=== PATIENT | male | born 1995 | race American Indian/Alaskan Native ===

== ENCOUNTER 2017-11-29 21:47 | Emergency (ER) | payer SELFPAY ==
--- NOTE | 2017-11-30 02:01 | Emergency Department Report ---
HPI - General Chief Complaint: Allergic Reaction Time Seen by Provider: 11/30/17 01:56 - HPI HPI: Patient is a 22-year-old male with no prior medical history who presents to ED complaining rash and hives on his arms and legs. Patient states he first noticed this about 4 days ago. Patient can only recall drinking some different flavor of mics hard lemonade. He states this is very taken Benadryl and has been helping with the rash but he comes back sometimes. Patient denies any throat pain or swelling of the throat. He denies fevers/chills/nausea/vomiting/ chest pain/shortness of breath. ED Past Medical Hx - Past Medical History Previous Medical History?: No - Social History Smoking Status: Never Smoker - Medications Home Medications: Home Medications Medication Instructions Recorded Confirmed Last Taken Type Hydrocortisone/Aloe Vera 1 applic TP TID #1 tube 11/30/17 Unknown Rx [Cortizone-10 1% Creme] Hydroxyzine HCl 25 mg PO QHS #20 tablet 11/30/17 Unknown Rx ED Review of Systems ROS: Stated complaint: ALLERGIC REACTION Other details as noted in HPI Constitutional: denies: chills, fever Eyes: denies: eye pain, eye discharge, vision change ENT: denies: ear pain, throat pain Respiratory: denies: cough, shortness of breath, wheezing Cardiovascular: denies: chest pain, palpitations Endocrine: no symptoms reported Gastrointestinal: denies: abdominal pain, nausea, diarrhea Genitourinary: denies: urgency, dysuria Musculoskeletal: denies: back pain, joint swelling, arthralgia Skin: rash, pruritus. denies: lesions Neurological: denies: headache, weakness, paresthesias Psychiatric: denies: anxiety, depression Hematological/Lymphatic: denies: easy bleeding, easy bruising Physical Exam - Physical Exam Vital Signs: Vital Signs 11/29/17 23:28 Temperature 98.6 F Pulse Rate 97 H Respiratory 18 Rate Blood Pressure 171/102 O2 Sat by Pulse 98 Oximetry Physical Exam: GENERAL: Alert and oriented x3, no apparent distress, Normal Gait, atraumatic. HEAD: Head is normocephalic and a-traumatic. MOUTH:Mouth is well hydrated and without lesions. Tonsils nonerythematous or swollen, Uvula midline, Tongue not elevated. Mucous membranes are moist. Posterior pharynx clear, no exudate or lesions. Patent airways. LUNGS: Symetrical with respiration, No wheezing, no rales or crackles, CTAB. HEART: S1, S2 present, regular rate and rhythm without murmur, no rubs, no gallops. Non tender to palpation SKIN: Warm and dry, mild, erythematous, generalized, raised lesions seen on her anterior thighs. No lesions, No ulceration or induration present. ED Course Vital Signs 11/29/17 23:28 Temperature 98.6 F Pulse Rate 97 H Respiratory 18 Rate Blood Pressure 171/102 O2 Sat by Pulse 98 Oximetry ED Medical Decision Making - Medical Decision Making 22-year-old male presents with allergic dermatitis ED course: Patient received 10 mg IM of Decadron. I discussed the patient he can continue using Benadryl Benadryl see a change. I discussed the patient to wash clothes that he is at her the past 3 days. I discussed the patient's check her around surrounding to see if there are any contact irritants around him. I discussed the patient has symptoms were resolved after week or so. Vital signs are normal. Patient is in no acute or respiratory distress. I discussed the patient have follow-up with primary care physician. Critical care attestation.: If time is entered above; I have spent that time in minutes in the direct care of this critically ill patient, excluding procedure time. ED Disposition Clinical Impression: Allergic dermatitis, Hives Disposition: DC-01 TO HOME OR SELFCARE Is pt being admited?: No Does the pt Need Aspirin: No Condition: Stable Instructions: Urticaria (ED), Contact Dermatitis (ED) Additional Instructions: Make sure to follow up with the primary care physician as discussed. Take all your medications as you've been prescribed. If you have any worsening symptoms or develop new symptoms please return to ED immediately. Prescriptions: Hydroxyzine HCl 25 mg PO QHS #20 tablet Hydrocortisone/Aloe Vera [Cortizone-10 1% Creme] 1 applic TP TID #1 tube Referrals: PRIMARY CARE, [Primary Care Provider] - 3-5 Days Forms: Accompanied Note, Work/School Release Form(ED) Time of Disposition: 03:03
[2017-11-30] MEDS ORDERED: DECADRON IM ONE (02:24)
[2017-11-30 03:23] VITALS: BP 142/88
== END 2017-11-30 03:24 | disposition home or self-care (01) ==
LOC: EDBD → ED 21:47
DX: L23.9 Allergic contact dermatitis, unspecified cause (principal)
CPT/HCPCS: 96372; 99282; J1100